=== PATIENT | female | born 1950 | race Caucasian/White ===

== ENCOUNTER → 2021-01-29 | Outpatient (CLI) | payer MEDICARE, OTHER | LOC: MAMO 09:35 | DX: Z12.31 Encounter for screening mammogram for malignant neoplasm of breast (principal) | CPT/HCPCS: 77063; 77067 ==

== ENCOUNTER 2021-04-12 12:13 | Emergency (ER) | payer MEDICARE, OTHER ==
[2021-04-12 12:55] LABS: HEMOGLOBIN 13.7 gm/dl (12.3-15.3); RED BLOOD COUNT 4.49 M/UL (4.00-5.10); WHITE BLOOD COUNT 5.2 K/UL (4.5-11.0)
[2021-04-12 13:14] LABS: BUN/CREATININE RATIO 12 (0-10)
== END 2021-04-12 15:00 | disposition home or self-care (01) ==
LOC: ER1 12:13
PROVIDERS: Physician Assistant
DX: I10 Essential (primary) hypertension (principal); E78.5 Hyperlipidemia, unspecified; Z90.89 Acquired absence of other organs; Z88.5 Allergy status to narcotic agent; F17.200 Nicotine dependence, unspecified, uncomplicated
CPT/HCPCS: 80053; 82550; 82553; 83874; 84484; 85025; 93005; 99285

== ENCOUNTER 2021-11-03 12:36 | Observation (INO) | payer MEDICARE ==
[~2021-11-03] VITALS: Ht 160 cm; Wt 67.1 kg
[2021-11-03 13:36] LABS: HEMOGLOBIN 14.1 gm/dl (12.3-15.3); RED BLOOD COUNT 4.52 M/UL (4.00-5.10); WHITE BLOOD COUNT 5.6 K/UL (4.5-11.0)
[2021-11-03 13:56] LABS: BUN/CREATININE RATIO 13 (0-10)
[2021-11-03] MEDS ORDERED: METOPROLOL TART25 MG PO (15:48)
[2021-11-03] MEDS ORDERED: CLOPIDOGREL75 MG PO (15:49)
[2021-11-03] MEDS ORDERED: REPATHA SY140 MG/1 M SQ (15:49)
[2021-11-03] MEDS ORDERED: HYDROCHLOROTHIA25 MG PO (15:50)
[2021-11-03] MEDS ORDERED: BUPROPION XL150 MG PO (15:51)
[2021-11-03] MEDS ORDERED: POTASSIUM CHLO10 ME1 PO (15:51)
[2021-11-03] MEDS ORDERED: PROTONIX40 MG PO (15:52)
[2021-11-03] MEDS ORDERED: CLONIDINE HCL0.1 MG PO (15:52)
[2021-11-03] MEDS ORDERED: VALSARTAN80 MG PO (15:53)
[2021-11-03] MEDS ORDERED: RANOLAZINE ER500 MG PO (15:54)
[2021-11-03] MEDS ORDERED: NITROGLYCERIN0.4 MG SL (15:55)
[2021-11-03] MEDS ORDERED: ASPIRIN EC81 MG PO (15:56)
[2021-11-04 02:07] LABS: HEMOGLOBIN 13.3 gm/dl (12.3-15.3); RED BLOOD COUNT 4.22 M/UL (4.00-5.10)
[2021-11-04 02:42] LABS: BUN/CREATININE RATIO 15 (0-10)
[2021-11-04] MEDS ORDERED: RANEXA500 MG PO (17:38)
[2021-11-04] MEDS ORDERED: NITROGLYCERIN0.4 MG SL (17:38)
[2021-11-04] MEDS ORDERED: LIPITOR40 MG PO (17:38)
[2021-11-04] MEDS ORDERED: NORVASC5 MG PO (17:44)
== END 2021-11-04 18:44 | disposition home or self-care (01) ==
LOC: ER1 12:36 → M/S 17:51
PROVIDERS: Physician Assistant; ADMIT Internal Medicine
DX: I25.119 Atherosclerotic heart disease of native coronary artery with unspecified angina pectoris (principal); R94.39 Abnormal result of other cardiovascular function study; I10 Essential (primary) hypertension; E78.5 Hyperlipidemia, unspecified; K21.9 Gastro-esophageal reflux disease without esophagitis; E87.1 Hypo-osmolality and hyponatremia; E87.6 Hypokalemia; M54.9 Dorsalgia, unspecified; R11.0 Nausea; R00.2 Palpitations; I71.9 Aortic aneurysm of unspecified site, without rupture; R06.02 Shortness of breath; R51.9 Headache, unspecified; Z95.5 Presence of coronary angioplasty implant and graft; Z79.02 Long term (current) use of antithrombotics/antiplatelets; Z79.82 Long term (current) use of aspirin; Z88.1 Allergy status to other antibiotic agents; Z88.5 Allergy status to narcotic agent; Z88.8 Allergy status to other drugs, medicaments and biological substances; Z82.49 Family history of ischemic heart disease and other diseases of the circulatory system; Z88.2 Allergy status to sulfonamides; Z20.822 Contact with and (suspected) exposure to COVID-19
CPT/HCPCS: ECHO; 36415; 71045; 78452; 80048; 80053; 81001; 82550; 82553; 83880; 84484; 85025; 93005; 93017; 93306; 99285; A9502; G0378; J2785; J3480; U0002

== ENCOUNTER 2021-11-17 10:59 | Observation (INO) | payer MEDICARE ==
[~2021-11-17] VITALS: Ht 160 cm; Wt 66.2 kg
[~2021-11-17 10:59] MED LIST: ASPIRIN EC81 MG PO; BUPROPION XL150 MG PO; CLONIDINE HCL0.1 MG PO; CLOPIDOGREL75 MG PO; HYDROCHLOROTHIA25 MG PO; LIPITOR40 MG PO; METOPROLOL TART25 MG PO; NITROGLYCERIN0.4 MG SL; NORVASC5 MG PO; POTASSIUM CHLO10 ME1 PO; PROTONIX40 MG PO; RANEXA500 MG PO; RANOLAZINE ER500 MG PO; REPATHA SY140 MG/1 M SQ; VALSARTAN80 MG PO
[2021-11-17 11:47] LABS: HEMOGLOBIN 14.6 gm/dl (12.3-15.3); RED BLOOD COUNT 4.63 M/UL (4.00-5.10); WHITE BLOOD COUNT 6.9 K/UL (4.5-11.0)
[2021-11-17 12:21] LABS: BUN/CREATININE RATIO 16 (0-10)
[2021-11-17] MEDS ORDERED: VALSARTAN80 MG PO (17:42)
== END 2021-11-17 18:15 | disposition home or self-care (01) ==
LOC: ER1 10:59 → CDU 14:36
PROVIDERS: Nurse Practitioner; ADMIT Internal Medicine
DX: R55 Syncope and collapse (principal); I25.10 Atherosclerotic heart disease of native coronary artery without angina pectoris; I10 Essential (primary) hypertension; E78.5 Hyperlipidemia, unspecified; I71.4 Abdominal aortic aneurysm, without rupture; K21.9 Gastro-esophageal reflux disease without esophagitis; Z20.822 Contact with and (suspected) exposure to COVID-19; Z95.5 Presence of coronary angioplasty implant and graft; Z79.01 Long term (current) use of anticoagulants; Z79.82 Long term (current) use of aspirin; Z79.899 Other long term (current) drug therapy
CPT/HCPCS: 0240U; 70450; 70496; 70498; 71045; 80053; 82550; 82553; 82962; 83735; 84439; 84443; 84484; 85025; 85379; 85610; 85730; 93005; 99285; G0378; Q9967

== ENCOUNTER → 2022-01-12 | Outpatient (CLI) | payer MEDICARE | LOC: EXRD 13:47 | DX: M81.0 Age-related osteoporosis without current pathological fracture (principal) | CPT/HCPCS: 77080 ==

== ENCOUNTER 2022-02-15 06:45 | Outpatient (CLI) | payer MEDICARE ==
[~2022-02-15] VITALS: Ht 160 cm; Wt 66.2 kg
[2022-02-15 07:25] LABS: HEMOGLOBIN 13.5 gm/dl (12.3-15.3); RED BLOOD COUNT 4.39 M/UL (4.00-5.10); WHITE BLOOD COUNT 5.3 K/UL (4.5-11.0)
[2022-02-15 07:40] LABS: BUN/CREATININE RATIO 11 (0-10)
== END 2022-02-15 21:35 | disposition home or self-care (01) ==
LOC: CATH 06:45 → PROG CARE 13:18 → CATH 21:35
PROVIDERS: Internal Medicine Cardiovascular Disease
DX: I25.118 Atherosclerotic heart disease of native coronary artery with other forms of angina pectoris (principal); I10 Essential (primary) hypertension; Z88.1 Allergy status to other antibiotic agents; Z88.5 Allergy status to narcotic agent; Z88.2 Allergy status to sulfonamides; Z88.8 Allergy status to other drugs, medicaments and biological substances; Z79.02 Long term (current) use of antithrombotics/antiplatelets; Z79.82 Long term (current) use of aspirin
CPT/HCPCS: 36415; 71045; 80048; 85025; 85347; 85610; 93005; 93571; 99152; 99153; C1769; C1887; C1894; J0153; J1644; J2250; J3010; J7040; Q9965